=== PATIENT | female | born 1950 | race Caucasian/White ===

== ENCOUNTER 2021-03-18 07:07 | Day surgery (SDC) | payer MEDICARE, SELFPAY ==
[2021-03-13 09:31] VITALS: BMI 28.5
--- NOTE | 2021-03-14 07:59 | MHC.SHP ---
Pre-Procedural Eval Section A Date of Service: 03/14/21 The patient is an INPATIENT: No Changes since office visit: No Cold of Flu in the past 2 weeks, No New Medical Problems, No Changes in Medication and No Patient answered all questions The History & Physical has been completed within 30 days and I have reviewed it.: Yes Section B Chief Complaint: Cataract Left Eye Allergies: Allergies Allergy/AdvReac Type Severity Reaction Status Date / Time ether Allergy Age 2 Verified 03/13/21 09:30 almost per parent Plan Diagnosis/Plan: Unchanged I have reviewed the history and physical and performed a pertinent physical examination on my patient. No changes have occurred unless specified.
--- NOTE | 2021-03-15 08:48 | P.CONAN_ITS ---
Documented by User: Muna Emerson NP 03/15/21 08:48 HPI - Anesthesia Eval Consult details Narrative: 71yo F for Left Cataract Extraction IOL Insertion PCP cleared No prev cataract on record [facility] Past Medical History Medical History Breast cancer COVID-19 vaccine series completed GERD (gastroesophageal reflux disease) Hypercalcemia Hyperlipidemia Hypothyroidism Osteoporosis PONV (postoperative nausea and vomiting) Surgical History Surgical History History of carpal tunnel surgery of right wrist History of inguinal hernia repair History of lumpectomy of right breast Hx of colonoscopy Hx of hysterectomy Social History Social History Are you a primary lawn care professional to a significant other at home: No Do you presently have visiting nurse or other home services: No Patient Tobacco Use Status: Former Tobacco user Quit Date: 40 yrs ago Tobacco use type: Cigarette Second Hand Smoke Exposure: No Use of substances other than those prescribed or required for medical reasons: No Have you been hit, kicked, punched, or otherwise hurt by someone within the past year? If so, by whom?: No Are you DNR?: No Advance Directives: No Advance Directives Information Provided: No Advance Directives on File: No Recently lost weight without trying: No Eating poorly because of decreased appetite: No Nutrition Risks: No Nutritional Risk Patient : No Meds Allergies Allergy/AdvReac Type Severity Reaction Status Date / Time ether Allergy Age 2 Verified 03/18/21 07:55 almost per parent Home Medications Medication Instructions Recorded Confirmed Last Taken Type alendronate 70 mg tablet 70 mg PO QWEEK 03/11/21 03/13/21 Unknown History estradiol (Estring) 1 vag ring VAGINAL [id number] 03/11/21 03/13/21 Unknown History levothyroxine 75 mcg capsule 75 mcg PO DAILY 03/11/21 03/13/21 03/18/21 06:30 History tamoxifen 20 mg tablet 20 mg PO DAILY 03/11/21 03/13/21 03/18/21 06:30 History Exam Exam Date and Time: March 15, 2021 0848 Height,Weight and Vital Signs: Height 4 ft 9 in Weight 59.874 kg Assessment and Plan Assessment Anesthesia Assessment: Chart Reviewed Documented by User: Juliana Boggs MD 03/18/21 08:23 PMFSH Past Medical History Medical History Breast cancer COVID-19 vaccine series completed GERD (gastroesophageal reflux disease) Hypercalcemia Hyperlipidemia Hypothyroidism Osteoporosis PONV (postoperative nausea and vomiting) Surgical History Surgical History History of carpal tunnel surgery of right wrist History of inguinal hernia repair History of lumpectomy of right breast Hx of colonoscopy Hx of hysterectomy History of Problems with Anesthesia: No Social History Social History Are you a primary lawn care professional to a significant other at home: No Do you presently have visiting nurse or other home services: No Patient Tobacco Use Status: Former Tobacco user Quit Date: 40 yrs ago Tobacco use type: Cigarette Second Hand Smoke Exposure: No Use of substances other than those prescribed or required for medical reasons: No Have you been hit, kicked, punched, or otherwise hurt by someone within the past year? If so, by whom?: No Are you DNR?: No Advance Directives: No Advance Directives Information Provided: No Advance Directives on File: No Recently lost weight without trying: No Eating poorly because of decreased appetite: No Nutrition Risks: No Nutritional Risk Patient : No Meds Allergies Allergy/AdvReac Type Severity Reaction Status Date / Time ether Allergy Age 2 Verified 03/18/21 07:55 almost per parent Home Medications Medication Instructions Recorded Confirmed Last Taken Type alendronate 70 mg tablet 70 mg PO QWEEK 03/11/21 03/13/21 Unknown History estradiol (Estring) 1 vag ring VAGINAL [id number] 03/11/21 03/13/21 Unknown History levothyroxine 75 mcg capsule 75 mcg PO DAILY 03/11/21 03/13/21 03/18/21 06:30 History tamoxifen 20 mg tablet 20 mg PO DAILY 03/11/21 03/13/21 03/18/21 06:30 History Exam Airway Mallampati Class: II Heart: RRR Lungs: CTA Assessment and Plan Final Anesthetic Review History of Problems with Anesthesia: No NPO: Yes ASA Class: II Final Preanesthetic Review: Meds/Allgs Chart Reviewed, Consent Obtained/Reviewed and Anes Risks/Benef Reviewed Patient Risk: Low Procedure Risk: Low Anesthetic Plan Anesthetic Plan: MAC: Disposition: Standard PACU
[2021-03-18 07:56] VITALS: BP 109/62; PULSE 60; RESP 16; TEMP 36.7; O2SAT 99
[2021-03-18] MEDS: Tetracaine HCl/PF 0.5% Oph Sol 4 ML DROPS 1 DROP EYE-LEFT (08:11)
[2021-03-18] MEDS: Lactated Ringers 500 ML 50 ML IV (08:11)
[2021-03-18] MEDS: Tropicamide 1 % Ophth Sol 3 ML BTL 1 DROP EYE-LEFT ×3 (08:15→08:25)
[2021-03-18] MEDS: Phenylephrine HCL 2.5% Oph SoL 2 ML BOTTLE 1 DROP EYE-LEFT ×3 (08:18→08:27)
--- NOTE | 2021-03-18 09:14 | HO.PNOPHT ---
Ophthalmology Procedure Procedure Date of Service: 03/18/21 Ophthalmology Viscoelastic: Healon Duet Dual Pack Pro Ophthalmology Lenses: TECNIS [id number] (17.5) Procedure Notes: PREOPERATIVE DIAGNOSIS: Decreased visual acuity left eye secondary to cataract POSTOPERATIVE DIAGNOSIS: Same PROCEDURE: Left cataract extraction with intraocular lens insertion SURGEON: Reji Clement M.D. ANESTHESIA: Topical/MAC ESTIMATED BLOOD LOSS: None COMPLICATIONS: None After obtaining informed consent, the patient was brought to the operation room suite and placed in the supine position. After adequate sedation per anesthesia, topical drops of Tetracaine were given to the left eye. The eye was then prepped and draped in the usual sterile fashion. The operating room microscope was then positioned over the operative eye and a lid speculum placed. A paracentesis was created. Viscoelastic was then instilled into the anterior chamber. A three plane incision was then created temporally, utilizing a 2.85 mm keratome. Capsulotomy forceps were then utilized to create a circular tear capsulotomy. Hydrodissection and hydrodelineation were carried out until adequate mobilization of the nucleus occurred. Phacoemulsification was then utilized to remove the dense central nucleus followed by removal of the cortical material utilizing the automated aspiration irrigation unit. Viscoat elastic was instilled into the posterior capsular bag followed by placement of a posterior chamber intraocular lens without difficulty. The residual Viscoat elastic was then removed utilizing the automated IA machine. The wound was check and found to be watertight. The patient tolerated the procedure well and the lid speculum was removed. Intracameral injection of Vigamox 0.1 mL followed by a subtenon injection of Kenalog-40 0.2 mL were administered. The patient will be seen in the a.m.
[2021-03-18 09:35] VITALS: BP 134/61; PULSE 53; RESP 16; TEMP 36.1; O2SAT 100
== END 2021-03-18 09:46 | disposition home or self-care (01) ==
PROVIDERS: PCP Internal Medicine; Visit Provider Ophthalmology
PROC: (CPT 66985; principal; 2021-03-18 09:40)
DX: H25.12 Age-related nuclear cataract, left eye (principal); I10 Essential (primary) hypertension
CPT/HCPCS: 66984; J2250; J2405; J3010; J3300; V2632

== ENCOUNTER 2021-04-01 08:59 | Day surgery (SDC) | payer MEDICARE, SELFPAY ==
[2021-03-13 09:36] VITALS: BMI 28.5
--- NOTE | 2021-03-27 14:27 | MHC.SHP ---
Pre-Procedural Eval Section A Date of Service: 03/27/21 The patient is an INPATIENT: No Changes since office visit: No Cold of Flu in the past 2 weeks, No New Medical Problems, No Changes in Medication and No Patient answered all questions The History & Physical has been completed within 30 days and I have reviewed it.: Yes Section B Chief Complaint: Cataract Right Eye Allergies: Allergies Allergy/AdvReac Type Severity Reaction Status Date / Time ether Allergy Age 2 Verified 03/18/21 07:55 almost per parent Plan Diagnosis/Plan: Unchanged I have reviewed the history and physical and performed a pertinent physical examination on my patient. No changes have occurred unless specified.
[2021-04-01 09:42] VITALS: BP 110/58; PULSE 62; RESP 16; TEMP 36.9; O2SAT 100
[2021-04-01] MEDS: Tetracaine HCl/PF 0.5% Oph Sol 4 ML DROPS 1 DROP EYE-RIGHT (10:04)
[2021-04-01] MEDS: Lactated Ringers 500 ML 20 ML IVCONT (10:04)
[2021-04-01] MEDS: Tropicamide 1 % Ophth Sol 3 ML BTL 1 DROP EYE-RIGHT ×3 (10:06→10:17)
[2021-04-01] MEDS: Phenylephrine HCL 2.5% Oph SoL 2 ML BOTTLE 1 DROP EYE-RIGHT ×3 (10:09→10:20)
--- NOTE | 2021-04-01 10:24 | HO.ANESPROP2 ---
[facility] Past Medical History Medical History Breast cancer COVID-19 vaccine series completed GERD (gastroesophageal reflux disease) Hypercalcemia Hyperlipidemia Hypothyroidism Osteoporosis PONV (postoperative nausea and vomiting) Family History Family history of problems with anesthesia: No Surgical History Surgical History History of carpal tunnel surgery of right wrist History of cataract extraction History of inguinal hernia repair History of lumpectomy of right breast Hx of colonoscopy Hx of hysterectomy History of Problems with Anesthesia: No Social History Social History Are you a primary disabilities caregiver to a significant other at home: No Do you presently have visiting nurse or other home services: No Patient Tobacco Use Status: Former Tobacco user Quit Date: 40 yrs ago Tobacco use type: Cigarette Second Hand Smoke Exposure: No Use of substances other than those prescribed or required for medical reasons: No Have you been hit, kicked, punched, or otherwise hurt by someone within the past year? If so, by whom?: No Are you DNR?: No Advance Directives: No Advance Directives Information Provided: No Advance Directives on File: No Recently lost weight without trying: No Eating poorly because of decreased appetite: No Nutrition Risks: No Nutritional Risk Patient : No Meds Allergies Allergy/AdvReac Type Severity Reaction Status Date / Time ether Allergy Age 2 Verified 04/01/21 09:40 almost per parent Active Medications: Current Medications Lactated Ringer's (Lr) 500 mls @ 20 mls/hr IVCONT .Q24H VI Last Admin: 04/01/21 10:04 Dose: 20 mls/hr Documented by: Povidone Iodine (Povidone Iodine 5 % Ophth Soln 30 Ml Bottle) 1 appl EYE-RIGHT PREOP PRN PRN Reason: Pre-Op Surgical Implant Prophy Home Medications Medication Instructions Recorded Confirmed Last Taken Type alendronate 70 mg tablet 70 mg PO QWEEK 03/11/21 03/13/21 Unknown History estradiol (Estring) 1 vag ring VAGINAL [id number] 03/11/21 03/13/21 Unknown History levothyroxine 75 mcg capsule 75 mcg PO DAILY 03/11/21 03/13/21 04/01/21 08:15 History tamoxifen 20 mg tablet 20 mg PO DAILY 03/11/21 03/13/21 04/01/21 08:15 History Exam Exam Date and Time: April 01, 2021 1024 Height,Weight and Vital Signs: Height 4 ft 9 in Weight 59.874 kg Last Vital Signs Temp 98.4 F 04/01/21 09:42 Pulse 62 04/01/21 09:42 Resp 16 04/01/21 09:42 BP 110/58 L 04/01/21 09:42 Pulse Ox 100 04/01/21 09:42 Airway Mallampati Class: II TM Dist: >3cm Neck ROM: Limited Assessment and Plan Assessment Anesthesia Assessment: Anesthesia Plan Discussed and Chart Reviewed Final Anesthetic Review Family History of Problems with Anesthesia: No History of Problems with Anesthesia: No NPO: Yes ASA Class: III Final Preanesthetic Review: No Changes in Pt Med Stat, Meds/Allgs Chart Reviewed, Consent Obtained/Reviewed and Anes Risks/Benef Reviewed Patient Risk: Intermediate Procedure Risk: Low Assessment/Block/Sedation in SS: Assess/Block/Sedation-SS Anesthetic Plan Anesthetic Plan: MAC:
--- NOTE | 2021-04-01 11:01 | HO.PNOPHT ---
Ophthalmology Procedure Procedure Date of Service: 04/01/21 Ophthalmology Viscoelastic: María Juliot Dual Pack Pro Ophthalmology Lenses: TECMARTITA [id number] (17) Procedure Notes: PREOPERATIVE DIAGNOSIS: Decreased visual acuity right eye secondary to cataract POSTOPERATIVE DIAGNOSIS: Same PROCEDURE: Right cataract extraction with intraocular lens insertion SURGEON: Reji Clement M.D. ANESTHESIA: Topical/MAC ESTIMATED BLOOD LOSS: None COMPLICATIONS: None After obtaining informed consent, the patient was brought to the operating room suite and placed in the supine position. After adequate sedation per anesthesia, topical drops of Tetracaine were given to the right eye. The eye was then prepped and draped in the usual sterile fashion. The operating room microscope was then positioned over the operative eye and a lid speculum placed. A paracentesis was created. Viscoelastic was then instilled into the anterior chamber. A three plane incision was then created temporally, utilizing a 2.85 mm keratome. Capsulotomy forceps were then utilized to create a circular tear capsulotomy. Hydrodissection and hydrodelineation were carried out until adequate mobilization of the nucleus occurred. Phacoemulsification was then utilized to remove the dense central nucleus followed by removal of the cortical material utilizing the automated aspiration irrigation unit. Viscoelastic was instilled into the posterior capsular bag followed by placement of a posterior chamber intraocular lens without difficulty. The residual Viscoelastic was then removed utilizing the automated IA machine. The wound was checked and found to be watertight. The patient tolerated the procedure well and the lid speculum was removed. Intracameral injection of Vigamox 0.1 mL followed by a subtenon injection of Kenalog-40 0.2 mL were administered. The patient will be seen in the a.m.
[2021-04-01 11:22] VITALS: BP 120/60; PULSE 56; RESP 18; TEMP 36.2; O2SAT 100
== END 2021-04-01 11:32 | disposition home or self-care (01) ==
PROVIDERS: PCP Internal Medicine; Visit Provider Ophthalmology
PROC: (CPT 66985; principal; 2021-04-01 11:20)
DX: H25.11 Age-related nuclear cataract, right eye (principal); H52.4 Presbyopia; D05.11 Intraductal carcinoma in situ of right breast; M81.0 Age-related osteoporosis without current pathological fracture; Z79.810 Long term (current) use of selective estrogen receptor modulators (SERMs); Z79.899 Other long term (current) drug therapy; Z92.3 Personal history of irradiation; Z87.891 Personal history of nicotine dependence
CPT/HCPCS: 66984; J2405; J3010; J3300; V2632

== ENCOUNTER 2024-10-24 11:27 | Outpatient (REF) | payer MEDICARE, SELFPAY ==
[2024-10-24 11:38] VITALS: BP 125/63; PULSE 70; RESP 16; TEMP 36.8; O2SAT 100; BMI 30.3
--- OUTSIDE RECORDS SUMMARY | 2024-10-24 13:51 | XMS_ITS ---
Author Name [facility] Organization Unknown Encounters Encounter Type Encounter Reason Primary Diagnosis Location Date Ambulatory [facility] [place] 10/24/2024 Ambulatory [facility] [place] 10/21/2024 Ambulatory [facility] [place] 10/21/2024 Ambulatory [facility] [place] 10/15/2024 Ambulatory [facility] [place] 10/15/2024 Ambulatory [facility] [place] 10/09/2024 Ambulatory [facility] [place] 10/07/2024 Ambulatory [facility] [place] 10/07/2024 Ambulatory [facility] [place] 10/07/2024 Ambulatory [facility] [place] 10/07/2024 Ambulatory [facility] [place] 10/03/2024 Ambulatory [facility] [place] 09/19/2024
--- OUTSIDE RECORDS SUMMARY | 2024-10-24 13:51 | XMS_ITS | Clinical Summary ---
Author Organization [facility] Address [address] [place] [id number] Phone Care Team Providers Care Political Aide Name Role Phone Juaquin Fuentes MD Primary Care Provider [phone] Medications Medication Sig Dispensed Refills Start Date End Date Status raNITIdine (ZANTAC) 150 MG tablet Take 1 tablet by mouth daily. Active Medication-Free Text Calcium Acti ve estradiol (ESTRING) 2 mg (7.5 mcg /24 hour) vaginal ring USE 1 VAGINAL RING EVERY 90 DAYS Active LACTOBACILLUS ACIDOPHILUS (PROBIOTIC ORAL) Active Family History Medical History Relation Comments CV disease Father Parkinson's disease Mother Cancer Sibling Relation Status Comments Father Mother Sibling Social History Tobacco Use Types Packs/Day Years Used Date Smoking Tobacco: Never Assessed Education Answer Date Recorded Are you interested in more education? Not on pete e 10/24/2022 Are you concerned about learning? Not on file 10/24/2022 No 10/24/2022 No 10/24/2022 Digital Access Answer Date Recorded No 11/22/2022 No 11/22/2022 No 11/22/2022 Reliable internet access at home? Not on file 11/22/2022 Device with a working camera? Not on file Sex and Gender Information Value Date Recorded Sex Assigned at Female 07/11/2024 5:42 PM EST Gender Identity Female 07/11/2024 5:42 PM EST Sexual Orientation Straight 07/11/2024 5: 43 PM EST Last Filed Vital Signs Vital Sign Reading Time Taken Comments Blood Pressure 112/70 11/06/2015 1:48 AM EDT Pulse - - Temperature - - Respiratory Rate - - Oxygen Saturation - - Inhaled Oxygen Concentration - - Weight 68 kg (150 lb) 11/06/2015 1:48 AM EDT Height 144.8 cm (4' 9 ) 11/06/2015 1:48 AM EDT Body Mass Index 32.46 11/06/2015 1:48 AM EDT Plan of Treatment Upcoming Encounters Date Type Department Care Team (Late st Contact Info) Description 10/25/2024 1:00 PM EDT Office Visit [facility] [address] [place] [id number] Juaquin Craven MD [address] [place] [address] Orthopedics & Sports Medicine, [facility] [place] [address] [email or web address] Health Maintenance Due Date Last Done Comments Adult Td,Tdap Booster 1948 LIPID PANEL 1948 DEPRESSION SCREENING 1960 SMOKING Hx and SMOKELESS TOB ACCO SCREENING 1961 HEPATITIS C SCREENING 1966 PNEUMOCOCCAL VACCINES (50+ y ears) (1 of 1 - PCV) 1998 OSTEOPOROSIS SCREENING INITI AL (ONE-TIME) 2013 ZOSTER VACCINES (2 of 3) 06/11/2017 04/16/2017 RSV VACCINE (1 - 1-dose 75+ series) 2023 COVID-19 VACCINE (2 - 2023-2 5 season) 2024 09/27/2020 HEPATITIS A VACCINES Aged Out No long er eligible based on patient's age to complete this topic HIB VACCINES Aged Out No longer eligi ble based on patient's age to complete this topic MENINGOCOCCAL VACCINES (ACWY) Aged Out No longer eligible based on patient's age to complete this topic Medical Devices Not on file Care Teams Political Aide Relationship Specialty Start Date End Date Juaquin Fuentes MD [address] [place] [id number] [email or web address] PCP - General Internal Medicine 10/19/24 Additional Source Comments The information contained in this document represents components of the legal health record. It is not the complete legal health record.[facility]
== END 2024-10-24 11:28 | disposition home or self-care (01) ==
LOC: HO.MS 11:27
PROVIDERS: PCP Internal Medicine; Visit Provider Ophthalmology
PROC: (CPT 66821; principal; 2024-10-24 13:00)
DX: H26.492 Other secondary cataract, left eye (principal)
CPT/HCPCS: 66821